=== PATIENT | female | born 1980 | race Caucasian/White ===

== ENCOUNTER → 2020-10-29 10:17 | Outpatient (BNVA) | payer MEDICARE, MEDICAID, SELFPAY | PROVIDERS: PCP Nurse Practitioner; Visit Provider Specialist | DX: R20.0 Anesthesia of skin (principal); R20.2 Paresthesia of skin; M54.2 Cervicalgia; M79.601 Pain in right arm; M79.602 Pain in left arm | CPT/HCPCS: 95910 ==

== ENCOUNTER → 2020-11-13 11:07 | Outpatient (BNVA) | payer MEDICARE, MEDICAID, SELFPAY | PROVIDERS: Family Provider Physician Assistant; PCP Nurse Practitioner; Visit Provider Nurse Practitioner Women's Health | DX: N93.9 Abnormal uterine and vaginal bleeding, unspecified (principal); Z11.3 Encounter for screening for infections with a predominantly sexual mode of transmission | CPT/HCPCS: 84443; 87491; 87591; 87661; 88175 ==

== ENCOUNTER 2020-11-21 06:00 | Outpatient (RCR) | payer MEDICARE, MEDICAID, SELFPAY | END 2020-11-24 23:59 | disposition home or self-care (01) | LOC: GPT 06:00 | PROVIDERS: Family Provider Physician Assistant; PCP Nurse Practitioner; Referring Provider Nurse Practitioner; Visit Provider Nurse Practitioner | DX: M54.2 Cervicalgia (principal) | CPT/HCPCS: 97032; 97110; 97161; 97530 ==

== ENCOUNTER 2020-11-25 06:00 | Outpatient (RCR) | payer MEDICARE, MEDICAID, SELFPAY | END 2020-12-22 23:59 | disposition home or self-care (01) | LOC: GPT 06:00 | PROVIDERS: Family Provider Physician Assistant; PCP Nurse Practitioner; Referring Provider Nurse Practitioner; Visit Provider Nurse Practitioner | DX: M54.2 Cervicalgia (principal); M54.5 Low back pain | CPT/HCPCS: 97032; 97110; 97140; 97530 ==

== ENCOUNTER 2020-12-23 06:00 | Outpatient (RCR) | payer MEDICARE, MEDICAID, SELFPAY | END 2021-01-22 23:59 | disposition home or self-care (01) | LOC: GPT 06:00 | PROVIDERS: Family Provider Physician Assistant; PCP Nurse Practitioner; Referring Provider Nurse Practitioner; Visit Provider Nurse Practitioner | DX: M54.2 Cervicalgia (principal) | CPT/HCPCS: 97110; 97140; 97164; 97530 ==

== ENCOUNTER 2021-01-18 05:20 | Emergency (ER) | payer MEDICARE, MEDICAID, SELFPAY ==
[2021-01-18 05:49] VITALS: BP 106/66; PULSE 78; RESP 18; TEMP 36.6; O2SAT 99; BMI 22.9
--- NOTE | 2021-01-18 05:54 | PC.NURSE ---
Pt reports pain 10/10 earlier but has resolved somewhat. Reports has been unable to pass gas rectally today.
--- NOTE | 2021-01-18 06:33 | CTR_ITS ---
PROCEDURE INFORMATION: Exam: CT Abdomen And Pelvis With Contrast Exam date and time: 01/18/2021 7:08 AM Age: 40 years old Clinical indication: Abdominal pain; Generalized; Prior surgery; Surgery date: 6+ months; Surgery type: C section x2; Additional info: Abd pain TECHNIQUE: Imaging protocol: Computed tomography of the abdomen and pelvis with contrast. Radiation optimization: All CT scans at this facility use at least one of these dose optimization techniques: automated exposure control; mA and/or kV adjustment per patient size (includes targeted exams where dose is matched to clinical indication); or iterative reconstruction. Contrast material: OMNIPAQUE 300; Contrast volume: 95 ml; Contrast route: INTRAVENOUS (IV); COMPARISON: US Abdomen* [id number] 11/22/2018 2:27 AM RADIATION DOSE METRICS: Total DLP (mGy-cm): 1391.87 FINDINGS: Liver: Normal. No mass. Gallbladder and bile ducts: Normal. No calcified stones. No ductal dilation. Pancreas: Normal. No ductal dilation. Spleen: Normal. No splenomegaly. Adrenal glands: Normal. No mass. Kidneys and ureters: Normal. No hydronephrosis. Stomach and bowel: Unremarkable. No obstruction. No mucosal thickening. Appendix: No evidence of appendicitis. Intraperitoneal space: Unremarkable. No free air. No significant fluid collection. Vasculature: Unremarkable. No abdominal aortic aneurysm. Lymph nodes: Unremarkable. No enlarged lymph nodes. Urinary bladder: Unremarkable as visualized. Reproductive: There are numerous prominent dilated ovarian and pelvic veins in the adnexa and around the uterus. This is consistent with pelvic congestion syndrome. Correlate clinically. Bones/joints: There is bilateral L5 spondylolysis with grade 2-3 L5-S1 spondylolisthesis. Soft tissues: Unremarkable. CT/CT abdomen pelvis w con* [id number] IMPRESSION: 1. No acute abnormalities are seen in the abdomen and pelvis. 2. Numerous dilated ovarian and pelvic veins in the adnexa consistent with pelvic congestion syndrome. 3. Bilateral L5 spondylolysis with grade 2-3 L5-S1 spondylolisthesis. Radiation Dose CTDIVOL = (mGy): DLP = 1391.87 (mGy-cm)
--- NOTE | 2021-01-18 06:35 | W.ED.ABDPA2 ---
HPI - Abdominal Pain General: Chief Complaint: Abdominal Pain Stated Complaint: constipation Time Seen by Provider: 01/18/21 06:01 History of Present Illness: HPI narrative: 40-year-old female presents emergency room complaining of a bowel obstruction. She is a history of irritable bowel she states this began 2 weeks ago with diarrhea. eventually got to the point where she was not having any bowel movements at all. She denies any hematochezia hematemesis coffee-ground emesis. No dysuria urgency or frequency. She still has some nausea now. She denies any vomiting. She denies dysuria urgency or frequency. MD elicited complaint: abdominal pain Pertinent past history: other (Irritable bowel syndrome) Onset (ago): minute(s) Pain Consistency: constant Location: Diffuse Severity: mild Quality: cramping Exacerbating factors: eating Relieving factors: nothing Associated Symptoms: Reports GI cramping, nausea and poor appetite; Denies anorexia, belching, bloating, change in bowel habits, change in stool character, chills, coffee ground emesis, constipation, diarrhea, dyspepsia, dysuria, excessive flatus, fever(s), heartburn, hematochezia, hematuria, hematemesis, fecal incontinence, loose stools, melena, syncope and vomiting Related Data: Date of Last Menstrual Period: 01/18/21 Review of Systems Const: Denies: fever(s) or chills ENMT: Denies: throat pain, ear or mastoid pain, nasal discharge or nasal congestion Card: Denies: syncope Resp: Denies: dyspnea, productive cough or non-productive cough GI: Reports: nausea and GI cramping; Denies: vomiting, hematemesis, coffee ground emesis, heartburn, diarrhea, constipation, bloating, belching, excessive flatus, fecal incontinence, change in bowel habits, change in stool character, hematochezia or melena : Denies: dysuria or hematuria Skin/Breast: Denies: rash or pruritus PFSH ED PFSH: Medical History IBS (irritable bowel syndrome) No pertinent past medical history neghx: htn,dm,thyroid,dvt/pe PCP: Roman Pelvic pain CHRONIC Surgical History Hx of section 2002 2009 Hx of laparoscopy (~2008) Hx of laparoscopy (~2016) Albino; BELEM; omental adhesions Hx of tubal ligation (~2009) Family History Mother Hypertension Thyroid disease Grandmother Hypertension Maternal Diabetes Paternal Heart disease Paternal Thyroid disease Maternal Grandfather Diabetes Paternal Stroke Paternal Heart disease Paternal Sister Thyroid disease Cervical cancer dx age 30 Denies family history of Colon cancer Ovarian cancer Hypercholesteremia Breast cancer Uterine cancer Female Reproductive History: Date of last menstrual period: 01/18/21 Physical Exam Const: COMMON NORMALS: no acute distress GENERAL APPEARANCE: cooperative and comfortable ORIENTATION/CONSCIOUSNESS: Yes awake, Yes oriented to person, Yes oriented to place and Yes oriented to time HENMT: COMMON NORMALS: normocephalic, atraumatic and hearing grossly normal bilaterally HEAD & SCALP: normocephalic and atraumatic Neck/C-Spine: COMMON NORMALS: no JVD Resp: COMMON NORMALS: normal respiratory effort, No retractions, No use of accessory muscles and clear to auscultation bilaterally AUSCULTATION: clear to auscultation bilaterally Cardio: COMMON NORMALS: no JVD, regular rate, regular rhythm and No murmurs present (Cardio) RATE: regular rate RHYTHM: regular rhythm GI: COMMON NORMALS: Soft to palpation and No hepatosplenomegaly present AUSCULTATION: Yes normoactive bowel sounds PALPATION: Yes Soft to palpation, No Tenderness to palpation present (GI), No Guarding due to palpation present (GI) and Yes No hepatosplenomegaly present Extremity: COMMON NORMALS: normal to inspection, capillary refill normal, no clubbing, cyanosis or edema, no calf tenderness and no pedal edema Neuro: SENSORIUM/ORIENTATION: Yes oriented to person, Yes oriented to place and Yes oriented to time Skin: COMMON NORMALS: no rashes or lesions noted GENERAL SKIN EXAM: no rashes or lesions noted Course Vital Signs: Vital signs: Vital Signs Temperature 97.8 F 01/18/21 05:49 Pulse Rate 67 01/18/21 07:06 Respiratory Rate 18 01/18/21 07:06 Blood Pressure 101/61 01/18/21 07:06 Pulse Oximetry 100 01/18/21 07:06 MDM - Abdominal Pain MDM Narrative: Medical decision making narrative: T shows pelvic congestion otherwise unremarkable no sign of bowel obstruction. She does have some pelvic congestion early CVA we will have her follow-up with her sleeve tailor for that. Additionally recommend she do 24 to 48 hours of clear liquids and advance as tolerated follow-up with her primary care doctor as well. Lab Data: Labs: Lab Results 01/18/21 01/18/21 01/18/21 Range/Units 06:26 06:26 06:26 WBC 4.6 (4.0-10.0) 10^3/ uL RBC 4.24 (4.1-5.3) 10^6/u L Hgb 13.2 (11.5-15.3) g/dL Hct 39.7 (37.0-47.0) % MCV 93.6 (81-99) fL MCH 31.1 (28.0-34.0) pg MCHC 33.2 (30.0-36.0) g/dL RDW 12.2 (12.1-15.1) % Plt Count 234 (130-400) 10^3/c mm MPV 8.9 (7.4-10.4) fL Neut % (Auto) 39.2 % Lymph % (Auto) 48.4 % Screven % (Auto) 7.6 % Eos % (Auto) 3.9 % Baso % (Auto) 0.7 % Neut # (Auto) 1.81 (1.8-7.7) 10^3/u L Lymph # (Auto) 2.2 (0.8-4.8) 10^3/u L Screven # (Auto) 0.4 (0.2-0.9) 10^3/u L Eos # (Auto) 0.2 (0.0-0.8) 10^3/u L Baso # (Auto) 0.0 (0.0-0.1) 10^3/u L Nucleated RBC % (a uto) 0 % Nucleated RBCs # 0.0 /100WBC Sodium 142 (136-145) mmol/L Potassium 3.7 (3.5-5.1) mmol/L Chloride 105 (98-107) mmol/L Carbon Dioxide 28 (22-29) mmol/L Anion Gap 12.7 (5-19) BUN 8 (6-20) mg/dL Creatinine 0.7 (0.5-0.9) mg/dL GFR Calculation 93.6 (90-130) mL/min Glucose 87 (65-115) mg/dL Calculated Osmolal ity 292 (285-295) mOsm/k g Calcium 8.6 (8.5-10.5) mg/dL Total Bilirubin 0.9 (0.15-1.2) mg/dL AST 11 (0-32) U/L ALT 6 (0-33) U/L Alkaline Phosphata se 50 (35-105) IU/L C-Reactive Protein 0.3 (0.0-4.9) mg/L Total Protein 7.3 (6.6-8.7) g/dL Albumin 4.4 (3.5-5.2) g/dL Globulin 2.9 (1.3-4.6) g/dL Lipase 22 (13-60) U/L HCG, Qual Negative (Negative) Urine Color (Yellow) Urine Appearance (CLEAR) Urine pH (5-7) Ur Specific Gravit y (1.005-1.030) Urine Protein (Negative) Urine Glucose (UA) (Normal) Urine Ketones (Negative) Urine Blood (Negative) Urine Nitrate (Negative) Urine Bilirubin (Negative) Urine Urobilinogen (Negative) mg/dL Ur Leukocyte Yajaira ase (Negative) Urine RBC (0-2) /hpf Urine WBC (0-5) /hpf Ur Squamous Epith Cells (0-5) /hpf Amorphous Sediment Urine Bacteria (NONE) /hpf Urine Mucus /hpf 01/18/21 Range/Units 07:00 WBC (4.0-10.0) 10^3/ uL RBC (4.1-5.3) 10^6/u L Hgb (11.5-15.3) g/dL Hct (37.0-47.0) % MCV (81-99) fL MCH (28.0-34.0) pg MCHC (30.0-36.0) g/dL RDW (12.1-15.1) % Plt Count (130-400) 10^3/c mm MPV (7.4-10.4) fL Neut % (Auto) % Lymph % (Auto) % Screven % (Auto) % Eos % (Auto) % Baso % (Auto) % Neut # (Auto) (1.8-7.7) 10^3/u L Lymph # (Auto) (0.8-4.8) 10^3/u L Screven # (Auto) (0.2-0.9) 10^3/u L Eos # (Auto) (0.0-0.8) 10^3/u L Baso # (Auto) (0.0-0.1) 10^3/u L Nucleated RBC % (a uto) % Nucleated RBCs # /100WBC Sodium (136-145) mmol/L Potassium (3.5-5.1) mmol/L Chloride (98-107) mmol/L Carbon Dioxide (22-29) mmol/L Anion Gap (5-19) BUN (6-20) mg/dL Creatinine (0.5-0.9) mg/dL GFR Calculation (90-130) mL/min Glucose (65-115) mg/dL Calculated Osmolal ity (285-295) mOsm/k g Calcium (8.5-10.5) mg/dL Total Bilirubin (0.15-1.2) mg/dL AST (0-32) U/L ALT (0-33) U/L Alkaline Phosphata se (35-105) IU/L C-Reactive Protein (0.0-4.9) mg/L Total Protein (6.6-8.7) g/dL Albumin (3.5-5.2) g/dL Globulin (1.3-4.6) g/dL Lipase (13-60) U/L HCG, Qual (Negative) Urine Color Dark yellow (Yellow) Urine Appearance Sl hazy (CLEAR) Urine pH 5 (5-7) Ur Specific Gravit y 1.025 (1.005-1.030) Urine Protein Trace (Negative) Urine Glucose (UA) Norm (Normal) Urine Ketones Negative (Negative) Urine Blood 3+ H (Negative) Urine Nitrate Negative (Negative) Urine Bilirubin Neg (Negative) Urine Urobilinogen Norm (Negative) mg/dL Ur Leukocyte Yajaira ase Negative (Negative) Urine RBC 25-40 H (0-2) /hpf Urine WBC Rare (0-5) /hpf Ur Squamous Epith Cells 5-10 H (0-5) /hpf Amorphous Sediment Not Reportable Urine Bacteria Trace (NONE) /hpf Urine Mucus 2+ /hpf Discharge Plan Discharge Patient Disposition: Home Clinical Impression: Female pelvic congestion syndrome, IBS (irritable bowel syndrome) Condition: Stable Prescriptions: No Action multivitamin Tablet 1 tab PO DAILY RF: 0 Discharge Orders: Discharge ED (Routine); Ordered 01/18/21 Ordered By: Baudilio Velazquez Referrals: Will Owens FNP [Primary Care Provider] - Discharge Diet: Usual diet Patient Instructions: Abdominal Pain (ED), Opioid Safety Activity Restrictions/Additional Instructions: Follow-up with your sleeve tailor regarding the CT finding of pelvic congestion. Would recommend clear liquid diet for 24 to 48 hours and advance as tolerated Coding Level of Care Code ED Audio Production Instructor for Chg Fwd Exam Comprehensive
[2021-01-18 06:36] LABS: Basophils % 0.7 %; Eosinophils # 0.2 10^3/uL (0.0-0.8); Eosinophils % 3.9 %; Hematocrit 39.7 % (37.0-47.0); Hemoglobin 13.2 g/dL (11.5-15.3); Lymphocytes # 2.2 10^3/uL (0.8-4.8); Lymphocytes % 48.4 %; Mean Corpuscular HGB Conc 33.2 g/dL (30.0-36.0); Mean Corpuscular Hemoglobin 31.1 pg (28.0-34.0); Mean Corpuscular Volume 93.6 fL (81-99); Mean Platelet Volume 8.9 fL (7.4-10.4); Monocytes # 0.4 10^3/uL (0.2-0.9); Monocytes % 7.6 %; Neutrophils # 1.81 10^3/uL (1.8-7.7); Neutrophils % 39.2 %; Nucleated Red Blood Cells % 0 %; Platelet Count 234 10^3/cmm (130-400); Red Blood Count 4.24 10^6/uL (4.1-5.3); Red Cell Distribution Width 12.2 % (12.1-15.1); White Blood Count 4.6 10^3/uL (4.0-10.0)
[2021-01-18 07:02] LABS: HCG, Serum Qual Negative (Negative)
[2021-01-18] MEDS: sodium chloride 0.9% 1,000 ML 999 ML IV (07:05)
[2021-01-18 07:06] VITALS: BP 101/61; PULSE 67; RESP 18; O2SAT 100
--- NOTE | 2021-01-18 07:07 | PC.NURSE ---
Received report assumed care. No changes noted from report. at bedside. Fluids infusing. UA collected.
[2021-01-18 07:10] LABS: Alanine Aminotransferase 6 U/L (0-33); Albumin Level 4.4 g/dL (3.5-5.2); Alkaline Phosphatase 50 IU/L (35-105); Anion Gap 12.7 (5-19); Aspartate Amino Transferase 11 U/L (0-32); Blood Urea Nitrogen 8 mg/dL (6-20); C Reactive Protein 0.3 mg/L (0.0-4.9); Calcium 8.6 mg/dL (8.5-10.5); Carbon Dioxide 28 mmol/L (22-29); Chloride 105 mmol/L (98-107); Creatinine Clr Calc Pharmacy 120.6403; Globulin 2.9 g/dL (1.3-4.6); Glomerular Filtration Rate 93.6 mL/min (90-130); Glucose 87 mg/dL (65-115); Lipase 22 U/L (13-60); Osmolality Calculated 292 mOsm/kg (285-295); Potassium 3.7 mmol/L (3.5-5.1); Sodium 142 mmol/L (136-145); Total Bilirubin 0.9 mg/dL (0.15-1.2); Total Protein 7.3 g/dL (6.6-8.7)
[2021-01-18] MEDS: iohexol 300 mg/mL 100 mL Btl IV (07:24)
[2021-01-18 07:28] LABS: Add Urine Culture? Yes; Add Urine Microscopic? YES; Bacteria Urine TRACE /hpf; Bilirubin Urine Neg (Negative); Blood Urine 3+ (Negative); Glucose Urine UA Norm (Normal); Ketones Urine Negative (Negative); Leukocyte Esterase Urine Negative (Negative); Mucus Urine 2+ /hpf; Nitrate Urine Negative (Negative); Protein Urine Trace (Negative); RBC Urine 25-40 /hpf (0-2); Specific Gravity, Urine 1.025 (1.005-1.030); Urine Appearance SL Hazy (CLEAR); Urine Color Dark Yellow (Yellow); Urobilinogen Urine Norm (Negative); WBC Urine RARE /hpf (0-5); pH Urine 5 (5-7)
[2021-01-18 08:50] VITALS: BP 110/64; PULSE 73; RESP 18; TEMP 37; O2SAT 98
== END 2021-01-18 08:53 | disposition home or self-care (01) ==
PROVIDERS: Emergency Medicine; Emergency Provider Family Medicine; PCP Nurse Practitioner
DX: N94.89 Other specified conditions associated with female genital organs and menstrual cycle (principal); K58.9 Irritable bowel syndrome, unspecified
CPT/HCPCS: 74177; 80053; 81001; 83690; 84703; 85025; 86140; 87086; 96360; 99283; J7030; Q9967

== ENCOUNTER → 2021-07-18 14:07 | Outpatient (BNVA) | payer MEDICARE, MEDICAID, SELFPAY | PROVIDERS: Family Provider Physician Assistant; PCP Nurse Practitioner; Visit Provider Obstetrics & Gynecology | DX: N93.9 Abnormal uterine and vaginal bleeding, unspecified (principal); R10.2 Pelvic and perineal pain | CPT/HCPCS: 76830 ==

== ENCOUNTER → 2021-07-23 13:20 | Outpatient (BNVA) | payer MEDICARE, MEDICAID, SELFPAY | PROVIDERS: Family Provider Physician Assistant; PCP Nurse Practitioner; Visit Provider Nurse Practitioner Women's Health | DX: N93.9 Abnormal uterine and vaginal bleeding, unspecified (principal) | CPT/HCPCS: 88305 ==

== ENCOUNTER 2023-08-02 08:03 | Outpatient (CLI) | payer MEDICARE, MEDICAID, SELFPAY ==
--- NOTE | 2023-08-02 08:11 | CT_ITS ---
WS: [id number] CT chest w con* [id number] HISTORY: Abnormal findings on a prior radiograph. That radiograph is not available for comparison. Fa tigue and chest pain. TECHNIQUE: Axial imaging performed through the thorax. Coronal and sagittal reformats are submitted. All CT scans at [facility] use at least one of these dose optimization techniques: automated exposure control; mA and/or kV adjustment per patient size (includes targeted exams where dose is mat ched to clinical indication); or iterative reconstruction. CONTRAST: Omnipaque 350; 100 mL IV. DLP: 293.03 mGy.cm COMPARISON: None available. Lungs and central airway: Normal. Pleura: Normal. No pleural effusion. Heart and pericardium: Normal size heart with no pericardial effusion. Mediastinum and tere: Small mediastinal and hilar lymph nodes. Largest lymph node is 9 mm in the RIGH T suprahilar region. Vessels: Normal size aortic and pulmonary artery. No coronary artery calcifications. Chest wall and lower neck: No soft tissue masses. Upper abdomen: Normal. Osseous structures: No destructive process. IMPRESSION: 1. No pulmonary mass, pneumonia or nodule. 2. No adenopathy. Largest lymph node is 9 mm in the RIGHT suprahilar region.
[2023-08-02] MEDS: iohexol 350 mg/mL 500 mL Btl (per mL) IV (08:26)
== END 2023-08-02 08:04 | disposition home or self-care (01) ==
PROVIDERS: PCP Nurse Practitioner; Visit Provider Nurse Practitioner
DX: R93.89 Abnormal findings on diagnostic imaging of other specified body structures (principal); R07.9 Chest pain, unspecified
CPT/HCPCS: 71260; Q9967

== ENCOUNTER 2023-08-10 07:44 | Outpatient (CLI) | payer MEDICARE, MEDICAID, SELFPAY ==
--- NOTE | 2023-08-10 | MR_ITS ---
WS: [id number] MRI LUMBAR SPINE NONCONTRAST HISTORY: Progressive low back pain. COMPARISON: CT abdomen and pelvis 01/18/2021 TECHNIQUE: Sagittal and axial multisequence imaging is submitted. Increase in the lower lumbar lordosis. No fractures or marrow edema. Severe degenerative disc space n arrowing at L5-S1. L5 anterolisthesis by 15 mm is similar to the prior CT from 2020. There is complet e loss of the disc space and remodeling of the L5 vertebral body. No marrow edema. Bilateral pars def ects at L5 are confirmed on the CT examination. The remaining vertebral bodies and disc spaces are normal. Conus terminates normally at L1-2 disc level. L1-L2: Normal. L2-L3: Normal. L3-L4: Mild annular disc bulging. Mild ligamentum flavum and facet arthritis. Mild bilateral foramina l stenosis. L4-L5: Mild annular disc bulging with ligamentum flavum and facet arthritis. Mild RIGHT and moderate LEFT foraminal stenosis with mild encroachment upon the exiting LEFT L4 nerve root. L5-S1: Unroofing of the disc. There is mild central stenosis. There is severe bilateral foraminal zeenat nosis. Nerve roots are being elongated by the anterolisthesis of L5. Significant encroachment upon th e exiting L5 nerve roots. Paravertebral soft tissues are normal. IMPRESSION: 1. Grade 2 spondylolisthesis of L5 with bilateral pars defects. Similar to the prior CT examination f rom 01/18/2021. 2. Severe bilateral foraminal stenosis at L5-S1 with significant encroachment and elongation of the e xiting L5 nerve roots. 3. Moderate LEFT and mild RIGHT foraminal stenosis at L4-5. 4. Mild bilateral foraminal stenosis at L3-4.
== END 2023-08-10 07:45 | disposition home or self-care (01) ==
LOC: RAD 07:45
PROVIDERS: PCP Nurse Practitioner; Visit Provider Nurse Practitioner
DX: M43.16 Spondylolisthesis, lumbar region (principal); M48.07 Spinal stenosis, lumbosacral region
CPT/HCPCS: 72148

== ENCOUNTER → 2023-09-06 13:55 | Outpatient (BNVA) | payer MEDICARE, MEDICAID, SELFPAY | PROVIDERS: PCP Nurse Practitioner; Referring Provider Nurse Practitioner; Visit Provider Internal Medicine Cardiovascular Disease | DX: R07.9 Chest pain, unspecified (principal); F41.9 Anxiety disorder, unspecified; R00.0 Tachycardia, unspecified; Z87.891 Personal history of nicotine dependence | CPT/HCPCS: 99203 ==

== ENCOUNTER 2023-09-23 11:58 | Outpatient (CLI) | payer MEDICARE, MEDICAID, SELFPAY ==
--- NOTE | 2023-09-23 | ECG_ITS ---
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 Interpretive Statements NAME OF STUDY: TREADMILL STRESS TEST INDICATION: Chest Pain RESULTS TO DR BRAGG PROCEDURE: At the baseline, the patient's blood pressure was 103/72 with a heart rate of 76. The baseline electrocardiogram showed normal sinus rhythm with normal ST-Ts. Poor R wave progression. Incomplete right bundle branch block pattern. The patient exercised for 9 minutes on a standard Jose protocol. Patient attained a maximum heart rate of 156 beats per minute(87% of the maximum predicted heart rate) with a blood pressure at the peak exercise of 119/62 mm Hg. The EKG at the peak exercise revealed no significant changes. Patient did not have any chest pain or any significant cardiac arrhythmias with the exercise During the recovery phase, there were no new changes. Blood pressure at the end of the recovery phase was 127/86 mm Hg with a heart rate of 79 per minute. CONCLUSION: 1. No significant EKG changes with the treadmill exercise 2. No exercise-induced chest pain or cardiac arrhythmia 3. Fair exercise tolerance, attained a maximum of 10.2 METs Electronically Signed On 10-07-2023 9:18:18 [employer] by Inder Narvaez M.D. [email or web address]
[2023-09-23 12:33] VITALS: BMI 22.9
[2023-09-23 13:10] VITALS: BP 113/72; PULSE 82
== END 2023-09-23 11:59 | disposition home or self-care (01) ==
LOC: CDL 11:58
PROVIDERS: PCP Nurse Practitioner; Visit Provider Internal Medicine Cardiovascular Disease
DX: R07.9 Chest pain, unspecified (principal)
CPT/HCPCS: 93017

== ENCOUNTER 2024-11-10 07:40 | Emergency (ER) | payer MEDICARE, MEDICAID, SELFPAY ==
[2024-11-10 07:59] VITALS: BP 107/75; PULSE 75; RESP 17; TEMP 36.7; O2SAT 100; BMI 22.9
[2024-11-10 08:20] LABS: Basophils % 0.7 %; Eosinophils # 0.2 10^3/uL (0.0-0.8); Eosinophils % 2.5 %; Hematocrit 42.5 % (36-47); Lymphocytes # 2.4 10^3/uL (0.8-4.8); Lymphocytes % 40.1 %; Mean Corpuscular HGB Conc 33.4 g/dL (30-55); Mean Corpuscular Hemoglobin 30.9 pg (27-33); Mean Corpuscular Volume 92.6 fl (85-98); Mean Platelet Volume 8.9 fL (7.4-10.4); Monocytes # 0.5 10^3/uL (0.2-0.9); Monocytes % 8.7 %; Neutrophils # 2.85 10^3/uL (1.8-7.7); Neutrophils % 47.8 %; Nucleated Red Blood Cells % 0 %; Platelet Count 257 10^3/cmm (157-399); Red Blood Count 4.59 10^6/uL (3.85-5.65); Red Cell Distribution Width 12.3 % (12.1-15.1); White Blood Count 5.96 10^3/uL (3.29-11.43)
--- NOTE | 2024-11-10 08:26 | CT_ITS ---
WS: [email or web address] CT ABDOMEN PELVIS TECHNIQUE: Contrast-enhanced CT of the abdomen and pelvis with coronal and sagittal reformatted image s. CLINICAL INFORMATION: abdominal pain COMPARISON: CT 01/18/2021 DLP: 519.[address] scans at [facility] use at least one of these dose optimization techniques: automated e xposure control; mA and/or kV adjustment per patient size (includes targeted exams where dose is matc hed to clinical indication); or iterative reconstruction. FINDINGS: Diffuse fatty infiltration of the liver. Normal spleen. Normal portal vein and splenic vein . Normal gallbladder. Normal GE junction. Adrenal glands are normal. No hydronephrosis. Normal renal parenchymal enhancement. Normal caliber abdominal aorta. Lung bases are well aerated. Tiny fat-containing umbilical hernia. No rmal pancreas. Normal sigmoid colon. Mild constipation in the RIGHT colon and cecum. No evidence of small or large b owel obstruction. Bilateral L5 spondylolysis with grade 2-3 spondylolisthesis similar to the prior studies. Similar-babita earing dilated ovarian and pelvic veins can be seen with pelvic congestion syndrome in the appropriat e clinical setting. This is similar to 2020. CT/CT abdomen pelvis w con* [id number] IMPRESSION: 1. Mild diffuse fatty infiltration of the liver. 2. Mild RIGHT colonic and cecal constipation. No evidence of small or large alice wel obstruction. 3. Numerous dilated pelvic and adnexal veins can be seen with pelvic congestio n syndrome in the appropriate clinical setting similar to prior studies. 4. Stable grade 2-3 anterolisthesis L5 on S1 with chronic spondylolysis. 5. Appendix is not visualized with no evidence of acute appendicitis.
--- NOTE | 2024-11-10 08:26 | US_ITS ---
WS: [id number] RIGHT UPPER QUADRANT ULTRASOUND HISTORY: ruq pain COMPARISON: 11/22/2018 Liver: 14.2 cm in length. Normal size liver and echogenicity. No bile duct dilatation or mass. Portal Vein: Normal hepatopetal flow with monophasic waveform. Gallbladder: Normally distended gallbladder with no stones or wall thickening. CBD: 0.5 cm Pancreas: Normal size and echogenicity. Right kidney: 10.3 cm in length. Normal size and echogenicity. No hydronephrosis or mass. Aorta and IVC: Mildly prominent IVC. Mild atherosclerosis aorta. No ascites. US/US abdomen limited [id number] IMPRESSION: 1. Normal gallbladder. 2. No intrahepatic duct dilatation. Normal liver.
--- NOTE | 2024-11-10 08:28 | ECG_ITS ---
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
[2024-11-10 08:37] LABS: Troponin(5th) Baseline < 6 ng/L (0-10)
--- NOTE | 2024-11-10 08:39 | W.ED.ABDPA2 ---
HPI - Abdominal Pain General: Chief Complaint: Abdominal Pain Stated Complaint: stomach pain Time Seen by Provider: 11/10/24 08:01 History of Present Illness: Chief complaint is epigastric pain that started 1 week ago. Has been constant and is worse when she is laying down. She takes occasional NSAIDs maybe once or twice a week. She drinks alcohol on rare occasion but has not had any for several weeks at least. She states she has no history of heart problems or aneurysms. She has IBS. She states that the pain is in the epigastric region but has moved also to the right upper quadrant area and she can feel it in the back exactly where it hurts in the epigastric region and she can feel some in the left lower quadrant. She has a family history of diverticulitis and so she got some amoxicillin from a family member and try taking it but it did not help. She tried taking omeprazole once and that did not help. No chest pain or shortness of breath. The pain does not migrate up or down the back. No fever vomiting or diarrhea. No black bloody stools. She has had some cloudy urine and some trouble with urination off and on. Related Data Home Medications Medication Instructions Recorded Confirmed multivitamin 1 tab PO DAILY 11/13/20 11/10/24 loratadine 10 mg tablet (Claritin) 10 mg PO DAILY PRN allergies 11/10/24 11/10/24 naproxen sodium 220 mg tablet 220 mg PO Q12H PRN Fever Or Pain 11/10/24 11/10/24 (Aleve) Previous Rx's Medication Instructions Recorded omeprazole 40 mg capsule,delayed 40 mg PO DAILY 14 days #14 caps 11/10/24 release Allergies Allergy/AdvReac Type Severity Reaction Status Date / Time lactose AdvReac Severe adverse Verified 11/10/24 07:59 Gluten AdvReac Severe adverse Uncoded 09/23/23 12:36 [facility] ED PFSH: Medical History (Updated 11/10/24 @ 11:46 by Michael Conti MD) Racing heart beat SVT (supraventricular tachycardia) Chest pain Spondylisthesis IBS (irritable bowel syndrome) No pertinent past medical history neghx: htn,dm,thyroid,dvt/pe PCP: Owens Pelvic pain (~2008) CHRONIC Surgical History Hx of laparoscopy (~2016) Albino; BELEM; omental adhesions Hx of section 2002 2009 Hx of tubal ligation (~2009) Hx of laparoscopy (~2008) Reports having 2 scopes for pelvic pain both Performed by Dr. Davila for suspected endometriosis/adenomyosis. Self reports no findings during procedure; op notes not available. Family History Mother Hypertension Thyroid disease Grandmother Hypertension Maternal Diabetes Paternal Heart disease Paternal Thyroid disease Maternal Grandfather Diabetes Paternal Stroke Paternal Heart disease Paternal Sister Thyroid disease Cervical cancer dx age 30 Family/Other Ovarian cancer Maternal and Paternal Aunt-- possible ovarian cancer Denies family history of Colon cancer Hypercholesteremia Breast cancer Uterine cancer Social History Smoking and tobacco/nicotine status: former use of tobacco/nicotine Quit status (tobacco/nicotine): has quit using Alcohol intake: current Alcohol intake frequency: few times a month Substance/Drug Use: never Physical Exam Const: COMMON NORMALS: no acute distress and patient oriented x3 GENERAL APPEARANCE: cooperative ORIENTATION/CONSCIOUSNESS: Yes awake HENMT: COMMON NORMALS: normocephalic, atraumatic, Normal external nose present and moist oral mucous membranes HEAD & SCALP: normocephalic and atraumatic FACE & SINUS: normal facial exam NOSE: Normal external nose present Eye: COMMON NORMALS: Equal, round and reactive pupils present, EOMs intact bilaterally and conjunctivae normal CONJUNCTIVA: Yes conjunctivae normal PUPIL: Yes Equal, round and reactive pupils present Neck/C-Spine: COMMON NORMALS: supple GENERAL: Yes normal visual inspection Resp: COMMON NORMALS: normal respiratory effort, No retractions, No use of accessory muscles and clear to auscultation bilaterally AUSCULTATION: clear to auscultation bilaterally Cardio: COMMON NORMALS: regular rate and regular rhythm RATE: regular rate RHYTHM: regular rhythm GI: COMMON NORMALS: Soft to palpation PALPATION: Yes Soft to palpation OTHER: Patient has some mild generalized tenderness without guarding. No focal McBurney point tenderness or Cortez's tenderness but has tenderness throughout the abdomen. Back/Pelvis: LUMBAR SPINE/LOWER BACK: Yes lumbar ROM normal Extremity: COMMON NORMALS: no calf tenderness and no pedal edema Neuro: COMMON NORMALS: patient oriented x3 SPEECH: speech normal Psych: COMMON NORMALS: mental status grossly normal, cooperative and speech normal SPEECH: Yes normal speech Skin: COMMON NORMALS: no rashes or lesions noted GENERAL SKIN EXAM: no rashes or lesions noted Course Vital Signs: Vital signs: Vital Signs Temperature 98.0 F 11/10/24 07:59 Pulse Rate 84 11/10/24 12:31 Respiratory Rate 17 11/10/24 07:59 Blood Pressure 114/62 11/10/24 12:31 Pulse Oximetry 100 11/10/24 12:31 MDM - Abdominal Pain Medical Decision Making Patient is alert in no acute distress with epigastric pain since Wednesday of last week that she woke up with on Wednesday and has been constant since then and is worse at night when she is laying down. No shortness of breath and no pleurisy to suggest PE or pneumonia. Cardiac etiology would be unlikely but will screen troponin and EKG. Delta troponin would not be necessary if her first troponin is negative as she has had symptoms constantly for 1 week now. Peptic ulcer disease, GERD, biliary colic, retained bile duct stone, pancreatitis, appendicitis, viral illness, diverticulitis, AAA, extensive differential. I ordered right upper quadrant gallbladder ultrasound, CT abdomen pelvis with IV contrast which patient agrees with after informed discussion, CBC CMP lipase urinalysis and urine test. I ordered EKG and troponin. EKG to my interpretation shows sinus rhythm with a rate of 73 bpm and some motion artifact and nonspecific ST segment changes. I ordered a GI cocktail to see if this helps with her symptoms. Patient's pain has resolved. CT showed fatty liver and possible pelvic congestion syndrome and constipation. Patient total bili was elevated otherwise other liver enzymes not significant elevated. Lipase not elevated. Troponin is negative. White count is normal. Patient feels comfortable with continued outpatient management. I discussed risk and benefit of PPI therapy. Advised limits of ED evaluation outpatient follow-up and return instructions. Ultrasound negative for acute process as well. Lab Data 11/10/24 08:10 11/10/24 08:10 Labs/Radiology: Radiology Impressions Abdomen Ultrasound 11/10/24 08:26 IMPRESSION: 1. Normal gallbladder. 2. No intrahepatic duct dilatation. Normal liver. Abdomen/Pelvis CT 11/10/24 08:26 IMPRESSION: 1. Mild diffuse fatty infiltration of the liver. 2. Mild RIGHT colonic and cecal constipation. No evidence of small or large bowel obstruction. 3. Numerous dilated pelvic and adnexal veins can be seen with pelvic congestion syndrome in the appropriate clinical setting similar to prior studies. 4. Stable grade 2-3 anterolisthesis L5 on S1 with chronic spondylolysis. 5. Appendix is not visualized with no evidence of acute appendicitis. Laboratory Results WBC 5.96 10^3/uL (3.29-11.43) 11/10/24 08:10 RBC 4.59 10^6/uL (3.85-5.65) 11/10/24 08:10 Hgb 14.20 g/dL (11.27-16.99) 11/10/24 08:10 Hct 42.5 % (36-47) 11/10/24 08:10 MCV 92.6 fl (85-98) 11/10/24 08:10 MCH 30.9 pg (27-33) 11/10/24 08:10 MCHC 33.4 g/dL (30-55) 11/10/24 08:10 RDW 12.3 % (12.1-15.1) 11/10/24 08:10 Plt Count 257 10^3/cmm (157-399) 11/10/24 08:10 MPV 8.9 fL (7.4-10.4) 11/10/24 08:10 Neut % (Auto) 47.8 % 11/10/24 08:10 Lymph % (Auto) 40.1 % 11/10/24 08:10 [place] % (Auto) 8.7 % 11/10/24 08:10 Eos % (Auto) 2.5 % 11/10/24 08:10 Baso % (Auto) 0.7 % 11/10/24 08:10 Neut # (Auto) 2.85 10^3/uL (1.8-7.7) 11/10/24 08:10 Lymph # (Auto) 2.4 10^3/uL (0.8-4.8) 11/10/24 08:10 [place] # (Auto) 0.5 10^3/uL (0.2-0.9) 11/10/24 08:10 Eos # (Auto) 0.2 10^3/uL (0.0-0.8) 11/10/24 08:10 Baso # (Auto) 0.0 10^3/uL (0.0-0.1) 11/10/24 08:10 Nucleated RBC % (auto) 0 % 11/10/24 08:10 Nucleated RBCs # 0.0 /100WBC 11/10/24 08:10 Sodium 140 mmol/L (136-145) 11/10/24 08:10 Potassium 5.0 mmol/L (3.5-5.1) 11/10/24 08:10 Chloride 105 mmol/L (98-107) 11/10/24 08:10 Carbon Dioxide 24 mmol/L (22-29) 11/10/24 08:10 Anion Gap 16.0 (5-19) 11/10/24 08:10 BUN 13 mg/dL (6-20) 11/10/24 08:10 Creatinine 0.7 mg/dL (0.5-0.9) 11/10/24 08:10 GFR Calculation 91.8 mL/min (90-130) 11/10/24 08:10 Glucose 91 mg/dL (65-115) 11/10/24 08:10 Calculated Osmolality 290 mOsm/kg (285-295) 11/10/24 08:10 Calcium 9.6 mg/dL (8.5-10.5) 11/10/24 08:10 Total Bilirubin 1.4 mg/dL (0.15-1.2) H 11/10/24 08:10 AST 13 U/L (0-32) 11/10/24 08:10 ALT 9 U/L (0-33) 11/10/24 08:10 Alkaline Phosphatase 57 U/L (35-105) 11/10/24 08:10 Troponin T Baseline < 6 ng/L (0-10) 11/10/24 08:10 Troponin T 120 Minute 6.00 ng/L (0-10) 11/10/24 09:57 Delta Troponin T 0.72678 ABS# (0-10) 11/10/24 09:57 Total Protein 7.1 g/dL (6.6-8.7) 11/10/24 08:10 Albumin 4.6 g/dL (3.5-5.2) 11/10/24 08:10 Globulin 2.5 g/dL (1.3-4.6) 11/10/24 08:10 Lipase 28 U/L (13-60) 11/10/24 08:10 HCG, Qual Negative (Negative) 11/10/24 08:54 Urine Color Yellow (Yellow) 11/10/24 08:54 Urine Appearance Clear (CLEAR) 11/10/24 08:54 Urine pH 6.5 (5-7) 11/10/24 08:54 Ur Specific [place] 1.020 (1.005-1.030) 11/10/24 08:54 Urine Protein Negative (Negative) 11/10/24 08:54 Urine Glucose (UA) Negative (Normal) 11/10/24 08:54 Urine Ketones Negative (Negative) 11/10/24 08:54 Urine Blood Negative (Negative) 11/10/24 08:54 Urine Nitrate Negative (Negative) 11/10/24 08:54 Urine Bilirubin Negative (Negative) 11/10/24 08:54 Urine Urobilinogen 1.0 mg/dL (Negative) 11/10/24 08:54 Ur Leukocyte Esterase Negative (Negative) 11/10/24 08:54 Urine RBC 0-2 /hpf (0-2) 11/10/24 08:54 Urine WBC 0-5 /hpf (0-5) 11/10/24 08:54 Ur Squamous Epith Cells 6-10 /hpf (0-5) 11/10/24 08:54 Amorphous Sediment Not Reportable 11/10/24 08:54 Urine Bacteria None seen /hpf (NONE) 11/10/24 08:54 Hyaline Casts 0.81 /lpf 11/10/24 08:54 All radiology interpretation(s) finalized by discharge Discharge Plan Discharge Patient Disposition: Home Clinical Impression: Abdominal pain Condition: Stable Prescriptions: New omeprazole 40 mg capsule,delayed release(DR/EC) 40 mg PO DAILY 14 Days Qty: 14 0RF No Action multivitamin Tablet 1 tab PO DAILY naproxen sodium [Aleve] 220 mg Tablet 220 mg PO Q12H PRN (Reason: Fever Or Pain) loratadine [Claritin] 10 mg Tablet 10 mg PO DAILY PRN (Reason: allergies) Discharge Orders: Discharge ED (Routine); Ordered 11/10/24 Ordered By: Michael Conti Referrals: Will Owens, SALES CONSULTANT RESIDENTIAL MANAGER [Primary Care Provider] - Patient Instructions: Abdominal Pain (ED), Opioid Safety, Pain Management Activity Restrictions/Additional Instructions: Follow-up with your doctor next week. Come back for worsening pain, fever, vomiting, black or bloody stools. Avoid NSAIDs including naproxen, ibuprofen, Aleve. Follow-up on your test results with your doctor. Recheck your liver with your doctor. Coding Level of Care Code ED Fire Lieutenant for Therese Johns
[2024-11-10 08:42] LABS: Alanine Aminotransferase 9 U/L (0-33); Albumin Level 4.6 g/dL (3.5-5.2); Alkaline Phosphatase 57 U/L (35-105); Aspartate Amino Transferase 13 U/L (0-32); Blood Urea Nitrogen 13 mg/dL (6-20); Calcium 9.6 mg/dL (8.5-10.5); Carbon Dioxide 24 mmol/L (22-29); Chloride 105 mmol/L (98-107); Creatinine Clr Calc Pharmacy 115.9093; Globulin 2.5 g/dL (1.3-4.6); Glomerular Filtration Rate 91.8 mL/min (90-130); Glucose 91 mg/dL (65-115); Lipase 28 U/L (13-60); Osmolality Calculated 290 mOsm/kg (285-295); Sodium 140 mmol/L (136-145); Total Bilirubin 1.4 mg/dL (0.15-1.2); Total Protein 7.1 g/dL (6.6-8.7)
[2024-11-10] MEDS: lidocaine 2% viscous 15 ML, aluminum-mag hydrox-simethicon 30 ML, sucralfate oral liq 1 GM PO (08:50)
[2024-11-10 09:00] LABS: HCG Qualitative Urine. Negative (Negative)
[2024-11-10 09:14] LABS: Bilirubin Urine Negative (Negative); Blood Urine Negative (Negative); Glucose Urine UA Negative (Normal); Ketones Urine Negative (Negative); Leukocyte Esterase Urine Negative (Negative); Nitrate Urine Negative (Negative); Protein Urine Negative (Negative); Urine Appearance Clear (CLEAR); Urine Color Yellow (Yellow); pH Urine 6.5 (5-7)
[2024-11-10] MEDS: iohexol 350 mg/mL 500 mL Btl (per mL) IV (09:15)
[2024-11-10 09:19] LABS: Bacteria Urine None Seen /hpf; Hyaline Casts Urine 0.81 /lpf; RBC Urine 0-2 /hpf (0-2); WBC Urine 0-5 /hpf (0-5)
[2024-11-10 09:51] VITALS: PULSE 72; O2SAT 100
--- NOTE | 2024-11-10 10:20 | ECG_ITS ---
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
[2024-11-10 10:36] LABS: Troponin 5 2HR Delta 0.00001 ABS# (0-10)
[2024-11-10 12:31] VITALS: BP 114/62; PULSE 84; O2SAT 100
== END 2024-11-10 12:32 | disposition home or self-care (01) ==
PROVIDERS: Emergency Provider Emergency Medicine; PCP Nurse Practitioner
DX: R10.9 Unspecified abdominal pain (principal); Z87.891 Personal history of nicotine dependence
CPT/HCPCS: 12345; 36415; 74177; 76705; 80053; 81001; 81025; 83690; 84484; 85025; 93005; 99285

== ENCOUNTER → 2025-04-10 11:24 | Outpatient (BNVA) | payer MEDICARE, MEDICAID, SELFPAY | PROVIDERS: PCP Nurse Practitioner; Visit Provider Nurse Practitioner Women's Health | DX: Z11.3 Encounter for screening for infections with a predominantly sexual mode of transmission (principal); Z01.419 Encounter for gynecological examination (general) (routine) without abnormal findings | CPT/HCPCS: 87491; 87591; 87624; 87661 ==

== ENCOUNTER → 2025-05-29 09:22 | Outpatient (BNVA) | payer MEDICARE, MEDICAID, SELFPAY | PROVIDERS: PCP Nurse Practitioner; Visit Provider Podiatrist Foot & Ankle Surgery | DX: M79.671 Pain in right foot (principal); M72.2 Plantar fascial fibromatosis; M20.11 Hallux valgus (acquired), right foot | CPT/HCPCS: 73630; 99203 ==

== ENCOUNTER 2025-08-09 07:50 | Outpatient (CLI) | payer MEDICARE, MEDICAID, SELFPAY ==
--- NOTE | 2025-08-09 07:54 | NM_ITS ---
WS: [id number] NUCLEAR MEDICINE HIDA SCAN WITH GALLBLADDER EJECTION FRACTION HISTORY: RUQ PAIN COMPARISON: Ultrasound 11/10/2024 TECHNIQUE: The patient was intravenously injected with 8.4 mCi of TC99m Mebrofenin. Immediate imaging over the right upper quadrant was followed by 5 minute image and additional images for a total of 60 minutes. Normal uptake of radiotracer throughout the liver. Activity identified in the gallbladder at 15 minutes and well distended by 60 minutes. Activity in the proximal small bowel was seen by 50 minutes. Good washout of the radiotracer from the liver by 60 minutes. The patient then drank 8 ounces of Ensure Plus. Ejection fraction at 60 minutes was 67%. Normal GB ejection fraction is 35-75%. Post fatty meal symptoms: None. NM/NM hepatobiliary w phar* [id number] IMPRESSION: 1. Normal HIDA scan. 2. Normal gallbladder ejection fraction.
== END 2025-08-09 07:51 | disposition home or self-care (01) ==
PROVIDERS: PCP Nurse Practitioner; Visit Provider Nurse Practitioner
DX: R10.10 Upper abdominal pain, unspecified (principal); R14.0 Abdominal distension (gaseous)
CPT/HCPCS: 78227; A9537